=== PATIENT | male | born 1995 | race Caucasian/White ===

== ENCOUNTER 2019-05-05 18:27 | Emergency (ER) | payer BC ==
[~2019-05-05] VITALS: Ht 175.3 cm; Wt 148.8 kg
[2019-05-05] MEDS ORDERED: LEVO-T100 MCG PO (18:57)
[2019-05-05] MEDS ORDERED: NORCO 5-325 TA1 EAC1 PO (20:59)
[2019-05-05] MEDS ORDERED: IBUPROFEN 800800 M1 PO (20:59)
[2019-05-05 21:39] VITALS: BP 163/94
== END 2019-05-05 21:51 | disposition home or self-care (01) ==
LOC: M.ERS 18:27
DX: S82.491A Other fracture of shaft of right fibula, initial encounter for closed fracture (principal); M24.271 Disorder of ligament, right ankle; E03.9 Hypothyroidism, unspecified; W01.0XXA Fall on same level from slipping, tripping and stumbling without subsequent striking against object, initial encounter; Y93.89 Activity, other specified; Y92.89 Other specified places as the place of occurrence of the external cause; Y99.8 Other external cause status